=== PATIENT | male | born 1945 | race Caucasian/White ===

== ENCOUNTER 2024-04-09 09:55 | Emergency (ER) | payer BC, SELFPAY ==
[2024-04-09 09:57] VITALS: BP 135/86
[2024-04-09 10:07] VITALS: BP 134/78
--- NOTE | 2024-04-09 10:11 | ED.GENMED ---
History of Present Illness
General
Chief Complaint: Breathing Problem
Source: patient and family
Exam Limitations: none
Time Seen by Provider: 04/09/24 10:01
History of Present Illness
History of Present Illness:
78yoM with a history of hyperlipidemia, GERD, and pericarditis 8 years ago presenting with his daughter for evaluation of shortness of breath. Patient was sick with a URI and cough last week. He took an COVID test which was positive. He
was started on a course of Paxlovid by his PCP which he finished 3 days ago. Since finishing the Paxlovid, his cough has recurred. The cough was productive yesterday but is now dry. He started to have some shortness of breath this morning with
wheezing and chest tightness. He does not have a history of asthma or COPD but was prescribed an albuterol inhaler last week. He used inhaler 3 times this morning without much relief. He denies any leg swelling. No prior history of heart disease.
Phy Exam
General Physical Exam
General Presentation: well appearing
General Skin: warm and dry
General Habitus: normal
General Mental: alert
ENT Exam
ENT Exam: normocephalic
Cardiovascular Exam
Cardiovascular Exam: regular rate/rhythm, no edema and no murmur
Pulmonary Exam
Pulmonary Exam: other (Scant wheezes noted with mild tachypnea. Able to speak in full sentences.)
Neurological Exam
Neurological Exam: alert
[place] Coma Scale
Eye Opening: Spontaneous
Verbal Response: Oriented
Motor Response: Obeys Commands
GCS Total Score: 15
Skin Exam
Skin Exam: normal color and warm/dry
Psychiatric Exam
Psychiatric Exam: normal mood/affect
Scores
Heart Failure Risk
Heart Failure Risk Score: Not Applicable
Course
Orders/Labs/Results
Orders:
Orders
04/09/24 09:57
EKG [Electrocardiogram (*1)] Urgent
Reason for Study: Shortness of Breath
EKG- Treatment ONCE
04/09/24 10:09
Cardiac Monitoring- Treatment ONCE
Levalbuterol [Xopenex 1.25 mg Inhalant Solution] 1.25 mg INH R NOW STA
04/09/24 10:10
CR Chest - 2 Views Urgent
Comment:
Reason For Exam: SOB, cough
04/09/24 10:31
COVID-19 Antigen Urgent
Source: Nasal Swab
Complete Blood Count/With Diff Urgent
Comprehensive Metabolic Panel Urgent
Troponin I Urgent
Influenza A+B Rapid Molecular Urgent
[facility] Source: Nasal Swab
Specimen Description:
Respiratory Syncytial Virus Urgent
KECIA Source: Nasal Swab
Specimen Description:
Date Specimen was Collected: 04/09/24
Time Specimen was Collected: 10:13
04/09/24 11:23
Dexamethasone Sod Phosphate [Decadron] 10 mg IV NOW STA
Ipratropium/Albuterol Sulfate [Duoneb] 3 ml INH R NOW STA
04/09/24 13:[address] Non Medication Order As Directed
Physician Order: Please give nebulizer machine at discharge
Abnormal Lab Results
04/09/24
10:31
Abs Immat Gran (auto) 0.1 H 10^3/uL
(0-0.05)
Immature Gran % 0.9 H %
(0-0.5)
Lymphocytes % 14.7 L %
(20.5-51.1)
Glucose 114 H mg/dl
(70-99)
04/09/24 10:31
04/09/24 10:31
Vital Signs
Initial and Last Documented VS:
Initial Vital Signs
Temp Pulse Resp BP Pulse Ox
98.2 F 94 20 135/86 98
04/09/24 09:57 04/09/24 09:57 04/09/24 09:57 04/09/24 09:57 04/09/24 09:57
Last Documented Vital Signs
Temp Pulse Resp BP Pulse Ox
98.2 F 75 17 117/73 92
04/09/24 09:57 04/09/24 14:15 04/09/24 14:15 04/09/24 14:00 04/09/24 14:15
MDM/Problems Addressed
Differential Diagnosis Includes:
78yoM here with chest tightness, SOB, and wheezing. Home COVID test positive last week and he was treated with Paxlovid. Developed SOB this morning. Using inhaler without relief. Oxygen saturation 98% on room air. Patient is nontoxic-appearing.
Wheezes noted on lung exam. No signs of respiratory distress. Differential diagnosis includes but is not limited to: Bronchitis, viral illness, pneumonia, less likely ACS
Initial ED plan: Check cardiac labs, COVID/flu/RSV swab, EKG, and chest x-ray. Xopenex neb and reassess.
*EKG
Interpreted by ED Provider?: Yes
EKG Intrepretation Date: 04/09/24
Heart Rate: 86
Rate: normal
Rhythm: sinus
[place]: left axis deviation
Interval: normal interval
QRS Pattern: normal QRS
Ischemia: no ischemia
*Critical Care Note
Total Time (30-74mins, 75-104mins- exclusive of procedures): Not Applicable
Update Note
Update Note:
Labs overall unremarkable. Viral testing negative. EKG shows normal sinus rhythm without ischemic changes and troponin within normal limits. Chest x-ray is clear without infiltrates. Patient ultimately given 2 neb treatments. Patient moving
much more air on reassessment although continues to have slight expiratory wheezes. Oxygen saturation in the high 90s on multiple reassessments. No indication for hospitalization at this time. Suspect bronchitis. Nebulizer machine given to
patient and prescription provided for prednisone and albuterol solution. Daughter is a nurse and will monitor patient closely at home. Advised close follow-up with PCP in 48 hours. Strict ED return precautions discussed. Patient in agreement
with plan and was discharged in stable condition.
ED Attending Note
-
Portions of this chart may have been created with voice recognition software.� Occasional wrong word or��sound alike� substitutions may have occurred due to the inherent limitations of voice recognition software.
Discharge Plan
Departure
Patient Disposition: Home (Routine Discharge)
Date of Disposition: 04/09/24
Time of Disposition: 13:17
Patient with high blood pressure during this ER visit?: No
Discharge Problem:
Acute bronchitis, Bronchospasm
Instructions: Acute bronchitis in adults
Prescriptions:
New
prednisone 50 mg tablet
50 mg PO DAILY Qty: 5 0RF
albuterol sulfate 0.63 mg/3 mL solution for nebulization
0.63 mg inhalation QID PRN (Reason: shortness of breath or wheezing) Qty: 75 0RF
Referrals:
UNKNOWN - PT DOES,NOT KNOW [Family Provider] -
Activity Restrictions/Additional Instructions:
Take prednisone as prescribed (next dose tomorrow). Use nebulizer treatments as needed for wheezing. Use humidifier and honey for cough.
Please follow-up with your family doctor on Thursday. Return to the ER with any new or worsening symptoms.
Interventions
Interventions:
*Risk Screen - Suicide Last Done: 04/09/24 10:40
*General Assessment Last Done: 04/09/24 10:40
*Neglect/Abuse Screening Last Done: 04/09/24 10:40
ED- Fall Risk Assessment Last Done: 04/09/24 10:40
*ED COVID-19 Vaccine History Last Done: 04/09/24 10:40
*Nursing Disposition Last Done: 04/09/24 14:40
ED- Cardiac Assessment Last Done: 04/09/24 10:40
ED- Pulmonary Assessment Last Done: 04/09/24 13:11
Discharge Date and Time
Discharge Date/Time: 04/09/24 14:40
Print Language: TURKMEN
--- NOTE | 2024-04-09 10:30 | EDRN ---
Pt stated that he tested positive for COVID last Thursday and saw his PCP who placed him on Caplovid.
[2024-04-09] MEDS: XOPENEX 1.25 MG INHALANT SOLUTION INH ×2 (10:35→10:45)
[2024-04-09 10:40] VITALS: BMI 31.4
[2024-04-09 10:46] LABS: % Basophils 0.8 % (0-2); % Eosinophils 3.6 % (0-6); % Immature Granulocytes 0.9 % (0-0.5); % Lymphocytes 14.7 % (20.5-51.1); % Monocytes 6.9 % (1.7-9.3); % Neutrophils 73.1 % (42.2-75.2); Absolute Basophils 0.1 10^3/uL (0-0.2); Absolute Eosinophils 0.3 10^3/uL (0-0.7); Absolute Immature Granulocytes 0.1 10^3/uL (0-0.05); Absolute Lymphocytes 1.3 10^3/uL (1.2-3.4); Absolute Monocytes 0.6 10^3/uL (0.1-0.6); Absolute Neutrophils 6.4 10^3/uL (1.4-6.5); Hematocrit 42.4 % (39.0-52.0); Hemoglobin 14.3 g/dL (13.0-18.0); Mean Corp Hgb Conc. 33.7 g/dL (33.0-37.0); Mean Corpuscular Hgb 29.2 pg (27.0-31.0); Mean Corpuscular Volume 86.5 fL (80.0-94.0); Mean Platelet Volume 9.4 fL (7.4-10.4); Nucleated Red Blood Cells % 0 % (-); Platelet Count 313 10^3/uL (130-400); Red Cell Dist. Width 12.9 % (11.5-14.5); White Blood Cell Count 8.7 10^3/uL (4.8-10.8)
[2024-04-09 10:58] LABS: ALT (SGPT) 29 U/L (0-50); AST (SGOT) 24 U/L (17-59); Albumin 3.9 g/dl (3.5-5.0); Alkaline Phosphatase 60 U/L (38-126); Blood Urea Nitrogen 12 mg/dl (9-20); Calcium 9.2 mg/dl (8.4-10.2); Carbon Dioxide 28 mmol/L (22-30); Chloride 104 mmol/L (98-107); Estimated Creatinine Clearance 81 ml/min; Glucose 114 mg/dl (70-99); Potassium 4.2 mmol/L (3.5-5.1); Sodium 138 mmol/L (135-145); Total Bilirubin 0.5 mg/dl (0.2-1.3); Total Protein 6.9 g/dl (6.3-8.2); eGFR > 60.00
[2024-04-09 11:00] VITALS: BP 115/74
[2024-04-09 11:05] LABS: COVID-19 Antigen Negative (Negative)
[2024-04-09 11:09] LABS: Troponin I < 0.012 ng/ml
[2024-04-09 12:00] VITALS: BP 110/59
[2024-04-09] MEDS: DUONEB 3 ML INH (12:24)
[2024-04-09] MEDS: DECADRON 10 MG IV (12:24)
[2024-04-09 13:00] VITALS: BP 105/70
[2024-04-09 14:00] VITALS: BP 117/73
--- NOTE | 2024-04-09 14:30 | EDRN ---
Pt was administered nebulizer equipment and was able to assemble it and turn the on button on to get his treatments at home.
== END 2024-04-09 14:40 | disposition home or self-care (01) ==
LOC: EMR 09:55
PROVIDERS: Physician Assistant; EMERGENCY PHYSICIAN Emergency Medicine
DX: J20.9 Acute bronchitis, unspecified (principal); E78.5 Hyperlipidemia, unspecified; K21.9 Gastro-esophageal reflux disease without esophagitis; Z11.52 Encounter for screening for COVID-19
CPT/HCPCS: 99285; 94640; 96374; 71046; 80053; 84484; 85025; 87502; 87807; 87811; 93005